=== PATIENT | female | born 1980 | race Caucasian/White ===

== ENCOUNTER → 2017-10-20 07:06 | Outpatient (CLI) | payer OTHER, SELFPAY ==
--- NOTE | 2017-10-20 | DI.MRI.S_ITS ---
PROCEDURE: MR KNEE RT WO CON INDICATIONS: RIGHT KNEE PAIN TECHNIQUE: Noncontrast sagittal PD fast spin echo and T2 fast spin echo with fat saturation, sagittal 3-D FLASH with fat saturation; coronal T1 spin echo and PD fast spin echo with fat saturation, and axial PD fast spin echo with fat saturation through the knee. COMPARISON: None. FINDINGS: Image quality: Excellent. Menisci: There is internal substance degeneration involving the posterior horn and body of the medial meniscus. The lateral meniscus demonstrates normal morphology and internal signal. The meniscal root ligaments appear intact. Cruciate ligaments: The anterior and posterior cruciate ligaments appear intact. Medial structures: The medial collateral ligament appears intact. The posterior oblique ligament, semimembranosus tendon insertions, oblique popliteal ligament, and meniscocapsular junction appear intact. Visualized portions of the pes anserinus tendons appear normal. No abnormal bursal fluid. Lateral structures: The lateral collateral ligament, long and short heads of the biceps femoris tendon appear intact. The popliteus tendon appears normal; the popliteofibular ligament appears intact. The posterosuperior and anteroinferior popliteomeniscal fascicles appear intact. The arcuate and fabellofibular ligaments appear intact, on either side of the lateral inferior geniculate artery. Iliotibial band appears normal. Anterior structures: The quadriceps and patellar tendons appear intact. Patellar alignment is normal. No femoral trochlear dysplasia or ventral trochlear prominence. No edema in the infrapatellar fat pad. Bones and cartilage: No fractures. There is mild bone marrow edema in the weight-bearing portion of the medial femoral condyle. 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 Joint space: There is large knee joint fluid. No Morton's cyst. Normal appearing synovial plicae are incidentally noted. IMPRESSION: 1. 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 2. Tricompartmental cartilage thinning and fibrillation. 3. Large knee joint effusion. Dictated by: Kadie Mireles M.D. on 10/20/2017 at 12:21 Transcribed by: [email or web address] on 10/20/2017 at 12:25 Approved by: Kadie Mireles M.D. on 10/20/2017 at 15:55
== END ==
PROVIDERS: Visit Provider Physician Assistant
DX: M23.321 Other meniscus derangements, posterior horn of medial meniscus, right knee (principal); M25.461 Effusion, right knee; M25.561 Pain in right knee
CPT/HCPCS: 73721